=== PATIENT | female | born 1990 | race Asian ===

== ENCOUNTER → 2017-03-16 | Outpatient (CLI) | payer OTHER ==
[2017-03-16 17:20] LABS: BASO % 0.1 %; BASO ABS # 0.01 K/uL (0-0.2); COMPLETE YES; EOS % 0.4 %; HEMATOCRIT 35.9 % (37-47); IG% 0.1 %; LYMPH % 30.4 %; LYMPH ABS # 2.91 K/uL (1.2-3.4); MEAN CORPUSCULAR HEMOGLOBIN 27.8 pg (25-34); MEAN CORPUSCULAR HGB CONC 34.8 g/dl (32-36); PLATELET COUNT 260 K/uL (130-400); RED BLOOD COUNT 4.49 M/uL (4.2-5.4); WHITE BLOOD COUNT 9.58 K/uL (4.8-10.8)
== END | disposition home or self-care (01) ==
LOC: C.LAB1850 16:43
PROVIDERS: ATTEND Obstetrics & Gynecology
DX: Z34.01 Encounter for supervision of normal first pregnancy, first trimester (principal)

== ENCOUNTER → 2017-03-16 | Outpatient (CLI) | payer OTHER | END | disposition home or self-care (01) | LOC: C.PAPS 10:31 | PROVIDERS: ATTEND Obstetrics & Gynecology | DX: Z12.4 Encounter for screening for malignant neoplasm of cervix (principal); Z33.1 Pregnant state, incidental ==

== ENCOUNTER → 2017-03-16 | Outpatient (CLI) | payer OTHER ==
[2017-03-16 18:43] LABS: URINE APPEARANCE CLEAR (CLEAR); URINE BILIRUBIN NEG (NEG); URINE COLOR YELLOW; URINE NITRITE NEG (NEG); URINE PH 6.5 (4.5-7.5); URINE SPECIFIC GRAVITY 1.021 (1.000-1.030); UROBILINOGEN NEG (NEG)
[2017-03-16 18:49] LABS: MANUAL MICROSCOPIC REQUIRED? NO; REVIEW REQ? NO
[2017-03-20 06:59] LABS: CHLAMYDIA TRACH RNA*** NOT DETECTED (NOT DETECTED); GC (NEIS GONORRHOEAE)RNA** NOT DETECTED (NOT DETECTED)
== END | disposition home or self-care (01) ==
LOC: C.LABSPEC 17:38
PROVIDERS: ATTEND Obstetrics & Gynecology
DX: Z34.01 Encounter for supervision of normal first pregnancy, first trimester (principal)

== ENCOUNTER → 2017-06-12 | Outpatient (CLI) | payer OTHER ==
[2017-06-12 20:23] LABS: GTGD 50 Grams
== END | disposition home or self-care (01) ==
LOC: C.LAB1850 15:46
PROVIDERS: ATTEND Obstetrics & Gynecology
DX: Z34.02 Encounter for supervision of normal first pregnancy, second trimester (principal)

== ENCOUNTER → 2017-08-02 | Outpatient (CLI) | payer OTHER ==
[2017-08-02 12:03] LABS: GTGD 50 Grams
[2017-08-02 12:07] LABS: HEMATOCRIT 35.1 % (37-47)
== END | disposition home or self-care (01) ==
LOC: C.LAB1850 10:08
PROVIDERS: ATTEND Obstetrics & Gynecology
DX: Z34.03 Encounter for supervision of normal first pregnancy, third trimester (principal)

== ENCOUNTER → 2017-08-17 | Outpatient (CLI) | payer OTHER ==
[2017-08-17 11:28] LABS: URINE APPEARANCE CLEAR (CLEAR); URINE COLOR DK YELLOW; URINE EPITHELIAL CELL AUTO >30 /lpf (0-5); URINE NITRITE NEG (NEG); URINE SPECIFIC GRAVITY 1.027 (1.000-1.030); UROBILINOGEN NEG (NEG)
[2017-08-17 11:29] LABS: MANUAL MICROSCOPIC REQUIRED? NO; REVIEW REQ? YES
[2017-08-17 11:31] LABS: URINE BILIRUBIN NEG (NEG)
== END | disposition home or self-care (01) ==
LOC: C.LABSPEC 10:47
PROVIDERS: ATTEND Obstetrics & Gynecology
DX: Z34.03 Encounter for supervision of normal first pregnancy, third trimester (principal)

== ENCOUNTER → 2017-10-05 | Outpatient (CLI) | payer OTHER | END | disposition home or self-care (01) | LOC: C.LABSPEC 17:41 | PROVIDERS: ATTEND Obstetrics & Gynecology | DX: Z34.03 Encounter for supervision of normal first pregnancy, third trimester (principal) ==

== ENCOUNTER 2017-10-29 19:40 | Inpatient (IN) | payer OTHER ==
[~2017-10-29] VITALS: Ht 160 cm; Wt 81.4 kg
[2017-10-29 21:03] LABS: HEMATOCRIT 37.8 % (37-47); HEMOGLOBIN 12.9 g/dL (12.0-16.0); MEAN CELL VOLUME 79.4 fL (80-100); MEAN CORPUSCULAR HEMOGLOBIN 27.1 pg (25-34); MEAN CORPUSCULAR HGB CONC 34.1 g/dl (32-36); MEAN PLATELET VOLUME 10.2 fL (7.4-10.4); PLATELET COUNT 190 K/uL (130-400); RED CELL DISTRIBUTION WIDTH CV 14.5 % (11.5-14.5); RED CELL DISTRIBUTION WIDTH SD 41.7 fL (36.4-46.3); WHITE BLOOD COUNT 12.74 K/uL (4.8-10.8)
[2017-10-29 22:17] VITALS: Ht 160 cm; Wt 81.4 kg
[2017-10-29] MEDS ORDERED: PRENTAB26 PO (22:24)
[2017-10-30] MEDS ORDERED: LACTATED RINGER'S 1000ML 1,000 ML IV PRN (00:37)
[2017-10-30] MEDS ORDERED: BUTORPHANOL TARTRATE 1 MG/ML VIAL IV PRN (00:45)
[2017-10-30] MEDS: LACTATED RINGER'S 1000ML 1,000 ML IV SCH ×3 (00:48→06:32)
[2017-10-30] MEDS ORDERED: BUPIVACAINE 0.25% 30 ML VIAL ONE (01:05)
[2017-10-30] MEDS ORDERED: EpHEDrine SULFATE INJ 50 MG/ML AMP ONE (01:05)
[2017-10-30] MEDS ORDERED: FENTANYL 2MCG/ML ROPIV 1.25MG/ML 100ML BAG EPI ONE (01:06)
[2017-10-30] MEDS ORDERED: FENTANYL CITRATE INJ 50 MCG/1 ML 2 ML VIAL ONE (01:06)
[2017-10-30] MEDS ORDERED: LACTATED RINGER'S 1000ML 500 ML IV PRN (02:16)
[2017-10-30] MEDS ORDERED: NALOXONE HCL INJ 1 MG in SODIUM CHLORIDE 0.9% 1000ML 1,000 ML IV PRN (02:16)
[2017-10-30] MEDS ORDERED: ONDANSETRON INJ 2 MG/ML 2 ML VIAL IV PRN (02:30)
[2017-10-30] MEDS ORDERED: NALBUPHINE HCL INJ 10 MG/ML AMP IV PRN (02:30)
[2017-10-30] MEDS ORDERED: DiphenhydrAMINE HCL 50 MG/ML VIAL IV PRN (02:30)
[2017-10-30] MEDS ORDERED: NALOXONE HCL INJ 0.4 MG/1 ML VIAL/CARP IV PRN (02:30)
[2017-10-30] MEDS ORDERED: EpHEDrine SULFATE INJ 50 MG/ML AMP IV PRN (02:30)
[2017-10-30] MEDS ORDERED: FENTANYL 2MCG/ML ROPIV 1.25MG/ML 100ML BAG EPI PRN (02:30)
[2017-10-30] MEDS ORDERED: OXYTOCIN 30 UNITS/500ML NSS IV ONE ×2 (06:27→07:03)
[2017-10-30] MEDS ORDERED: NURSING VERBAL MED ORDER ONE ×2 (07:00→21:00)
[2017-10-30] MEDS ORDERED: GENTAMICIN CONSULT ACTIVE PRN (08:30)
[2017-10-30] MEDS: AMPICILLIN IV 2,000 MG in SODIUM CHLOR 0.9% AD-VAN 100ML 100 ML IV SCH ×3 (08:53→21:00)
[2017-10-30] MEDS ORDERED: AMPICILLIN INJ 2,000 MG in SODIUM CHLORIDE 0.9% 50ML 50 ML IV SCH (09:00)
[2017-10-30] MEDS: DEXTROSE 5% IV SCH (09:52)
[2017-10-30] MEDS: GENTAMICIN IV SCH (09:52)
[2017-10-30 09:55] LABS: CREATININE 0.99 mg/dl (0.60-1.20)
[2017-10-30] MEDS ORDERED: BENZOCAINE 20% AER SPR 82.5 GM CAN EXT PRN (11:00)
[2017-10-30] MEDS ORDERED: ACETAMINOPHEN/CODEINE 300/30MG TAB PO PRN (11:00)
[2017-10-30] MEDS ORDERED: LANOLIN OINT EXT PRN (11:00)
[2017-10-30] MEDS ORDERED: HYDROCORTISONE ACETATE 25 MG SUPP PR PRN (11:00)
[2017-10-30] MEDS ORDERED: DIPHTHERIA/TETANUS/PERTUSSIS 0.5 ML SYR/VIAL IM. ONE (11:00)
[2017-10-30] MEDS ORDERED: ACETAMINOPHEN 325 MG TAB PO PRN (11:00)
[2017-10-30] MEDS ORDERED: SUPERCREAM 0.870 % 15GM JAR EXT PRN (11:00)
[2017-10-30] MEDS ORDERED: OXYTOCIN 30 UNITS/500ML NSS IV PRN (11:00)
--- NOTE | 2017-10-30 11:18 | Discharge Instructions ---
Discharge Instructions Date of Service Oct 30, 2017. Admission Reason for Admission: Encounter For Supervision Of Normal Intrauterine Discharge Discharge Diagnosis / Problem: Vaginal Delivery Discharge Goals Goal(s): Routine recovery after delivery Medications Continue Dispensed Medications: supercream, dermaplast, tucks, lansinoh Activity Recommendations Activity Limitations: per Instructions/Follow-up section . Instructions / Follow-Up Instructions / Follow-Up ACTIVITY RECOMMENDATIONS: * Gradual return to full activity over the next 2-3 weeks. * No lifting - nothing heavier than baby over the next 2-3 weeks. * Do not engage in vigorous exercise, sexual activity or sports until cleared by your physician. * Do not drive or operate any motorized equipment until cleared by your physician. * You may shower/bathe daily. MEDICATIONS: For discomfort or pain, you may use Acetaminophen (Tylenol), Ibuprofen (Advil), or Naproxen (Aleve) following the package directions. For constipation you may use Colace following the package directions. BREAST CARE: If you are not breast feeding: * Wear a supportive bra 24 hours a day for one to two weeks. * Avoid stimulating your breasts and nipples as much as possible during the first few weeks after delivery. * When taking a shower, have the warm water hit your back, not breasts. * When your breasts feel full, apply ice packs. Usually three to four times a day helps ease the discomfort. * Take a mild pain medication (Tylenol / Motrin) when you are uncomfortable. If breast feeding: * Use breast milk to lubricate nipples. Lansinoh cream may be used for sore nipples. You do not need to remove cream prior to breast feeding. If using a different brand of cream, check the label for directions regarding removal of cream prior to nursing. * Wear a supportive bra. * If having problems with breasts or breast feeding, call a [facility] consultant or your health care provider. EPISIOTOMY CARE: After delivery, if you have an episiotomy (stitches), the following steps will ease discomfort and aid healing. * For the first 24 hours after delivery, place ice packs next to your episiotomy to help reduce swelling. * After the first 24 hour-period, sitz baths, either portable or in the tub, are suggested. A shower with a shower arm sprayed over the episiotomy may be comforting. * Mira care should be done after each voiding and bowel movement. Squirt warm water from a plastic bottle over the perineum (region of the body between the anus and urinary opening) and pat dry. * Use Dermoplast to ease discomfort. Shake container. [place] directly over the episiotomy. Place a Tucks on a clean sanitary pad next to your episiotomy. SPECIAL CARE INSTRUCTIONS: When you are discharged from the hospital, it is important for you to follow the instructions listed below: * During the first week at home, you should be able to care for yourself and your baby. In addition, the usual light household activities are encouraged. * Limit your activities to the way you feel. Do not try to clean the house or move furniture. Be sensible. * If you actively engage in sports and have done so up until the time of your delivery, you may resume these activities as soon as you feel able. This may take up to one month or even longer. Use good judgment. * Continue to take your vitamins for at least six weeks after the of your baby. * Your diet need not be limited unless you were on a special diet before your delivery. Breast-feeding mothers need around 2500 calories per day and at least 64-80 ounces of fluid per day (8 to 10 glasses). * You should eat foods from the four major food groups. Crash diets or fad diets are to be avoided. Eating lean meats, fresh fruits and vegetables, low-fat dairy products, high fiber foods and a regular exercise program, will help you get back to your pre- weight without putting your health at risk. * Constipation is sometimes a problem after delivery. Take a mild laxative as needed. If breast feeding, Milk of Magnesia is acceptable to use. You may use a suppository or Fleets enema if no episiotomy. * A daily shower or tub bath is suggested. Be sure to thoroughly and gently dry the perineum. * A bloody vaginal discharge will usually continue until around four weeks post . A small amount of bleeding may continue for as long as six weeks. Vaginal discharge changes from the bright red bleeding after delivery to pink then brownish and finally yellowish-pink before becoming white and disappearing. * Bleeding may increase with activity. Your first period may come in 4-8 weeks. If you are breast feeding, your period may be delayed even longer. * Sh[place]aloo (sex) can begin whenever both you and your partner feel comfortable and do not have any form of genital infection. It is recommended that you wait at least six weeks for internal and external healing to occur. If you have questions, please talk to your health care practitioner. A condom should be used to prevent infection and . * Foreplay, gentle intercourse and lubrication is very important the first several times to prevent pain. A water-based lubricant such as K-Y jelly or Astroglide may be used. * If you have RH negative blood and your baby is RH positive, you will receive RHOGAM by injection prior to discharge. The nurse will give you a card to keep with you that has the date and place that you received RHOGAM after delivery. * During your care, you had a Rubella screen done to check for the presence of rubella antibodies in your blood. If your test was negative, you will receive a Rubella vaccine prior to discharge. This vaccine may cause a fever, soreness at the injection site and flu-like symptoms. If these symptoms persist, notify your health care practitioner. is not advised for one month after a Rubella vaccine. * Verbalizes understanding of car seat law as reviewed with patient nursing. * Car Seat hand-out given and reviewed with patient by nursing. * Shaken baby information reviewed with patient by nursing. Call you doctor if: * Heavy bleeding (saturating several pads an hour) or passing clots the size of your fist. * A fever >101 degrees F (38.3 degrees C) on two occasions four hours apart and /or chills. * Unusual pain in the pelvic or vaginal areas. * "Baby Blues" lasting longer than two weeks. If you have any questions or concerns, call your health care practitioner at . FOLLOW UP VISIT: * Please call the office at to schedule a 6 week examination. It is important you keep this appointment. It is important for you to make arrangements for either yearly or twice yearly check-ups thereafter. Current Hospital Diet Patient's current hospital diet: Regular OB Diet Discharge Diet Recommended Diet: Regular Diet Pending Studies Studies pending at discharge: no Medical Emergencies . Who to Call and When: Medical Emergencies: If at any time you feel your situation is an emergency, please call 911 immediately. . Non-Emergent Contact Non-Emergency issues call your: Primary Care Provider . . "Provider Documentation" section prepared by Yared Chase. . VTE Core Measure Inpt VTE Proph given/why not?: Treatment not indicated
--- NOTE | 2017-10-30 11:21 | Anesthesia Procedure Note ---
Anesthesia Epidural Removal Nt Date & Time Oct 30, 2017 at 11:21 Vital Signs Pain Intensity: 1.0 Notes Mental Status: alert / awake / arousable, participated in evaluation Nausea / Vomiting: adequately controlled Pain: adequately controlled Airway Patency, RR, SpO2: stable & adequate BP & HR: stable & adequate Hydration State: stable & adequate Neuraxial Anesthesia: was administered Anesthetic Complications: no major complications apparent, pt satisfied with anesthetic care Epidural: removed without complications, with tip intact
--- NOTE | 2017-10-30 11:21 | DELIVERY SUMMARY ---
DATE OF OPERATION: 10/30/2017 VAGINAL DELIVERY SUMMARY PREDELIVERY DIAGNOSES: 1. A 27-year-old G1, P0 at 40 weeks and 5 days. 2. Spontaneous labor. 3. Chorioamnionitis. POSTDELIVERY DIAGNOSES: Same. PROCEDURE: Spontaneous vaginal delivery and repair of second degree perineal laceration. ESTIMATED BLOOD LOSS: 300 mL. FINDINGS: Viable male . Apgars 3 at 1 minute and 9 at 5 minutes. Weight pending. Please see nursery records. DESCRIPTION OF DELIVERY: The patient progressed to complete with epidural anesthesia. She then began to push. During her pushing process, she was noted to have a temperature of 100.7 degrees Fahrenheit as well as maternal tachycardia in the 130s-140s. heart rate during pushing was a baseline of 150s with category 2 tracing throughout with occasional late Declarations; however, these were not recurrent. Because of the diagnosis during pushing of chorioamnionitis, antibiotics were initiated. She received 5 mg/kg of gentamicin IV as well as 2 grams of ampicillin IV. These will be continued for one dose postdelivery. After pushing, the patient spontaneously vaginally delivered a viable male from the cephalic presentation. The head delivered in the left occiput anterior position. No nuchal cord was noted. The anterior followed by the posterior shoulder delivered followed by the body. The baby was placed on mother's abdomen. The cord was doubly clamped and cut and the baby was handed off to the waiting pediatric team. A segment of cord was retained for cord gases. Cord blood was obtained. The placenta then delivered spontaneously intact with a 3-vessel cord. Pitocin was administered. The uterus and vagina were swept of all clots and debris. The uterus became firm. The vagina, cervix, and perineum were inspected and a second degree perineal laceration was noted and repaired in standard fashion with 3-0 Vicryl in a running locked stitch. Excellent hemostasis was observed. Rectal exam revealed no stitches or lacerations entering into the rectum. The anal sphincter was visualized and noted to be intact. Excellent hemostasis was observed. At the conclusion of the delivery, all sponge, instrument and needle counts were correct x2. Mother and baby tolerated the delivery well and are recovering in stable and good condition in the room. I attest to the content of the Intraoperative Record and any orders documented therein. Any exception s are noted below.
[2017-10-30] MEDS: IBUPROFEN 600 MG TAB PO PRN ×3 (13:16→22:43)
[2017-10-30 13:40] VITALS: BP 112/74; PULSE 114; TEMP 36.9
[2017-10-30] MEDS: ACETAMINOPHEN/CODEINE 300/30MG TAB PO PRN ×3 (13:58→22:43)
[2017-10-30 15:00] VITALS: BP 119/80; PULSE 96; TEMP 36.5
[2017-10-30 19:30] VITALS: BP 120/78; PULSE 92; TEMP 36.4
[2017-10-30] MEDS: DOCUSATE SODIUM 100 MG CAP PO SCH (20:00)
[2017-10-31 00:19] VITALS: BP 112/76; TEMP 36.6
[2017-10-31] MEDS: AMPICILLIN IV 2,000 MG in SODIUM CHLOR 0.9% AD-VAN 100ML 100 ML IV SCH (03:03)
[2017-10-31 03:32] VITALS: BP 114/71; PULSE 105; TEMP 36.5
[2017-10-31] MEDS ORDERED: SODIUM CHLORIDE 0.65% NA SOLN 45 ML (OCEAN) ONE (03:47)
[2017-10-31] MEDS ORDERED: COUGH DROP (SUGAR FREE) LOZ 24 LOZ/1 BOX LOZ ONE (03:47)
[2017-10-31] MEDS: IBUPROFEN 600 MG TAB PO PRN ×3 (04:31→20:44)
[2017-10-31] MEDS: ACETAMINOPHEN/CODEINE 300/30MG TAB PO PRN ×3 (04:31→14:14)
--- NOTE | 2017-10-31 06:25 | Progress Note ---
Subjective Oct 31, 2017. Subjective conversation w/ patient (Patient seen and examined at bedside) Ambulation: ambulating normally Voiding: no voiding problems Diet Tolerance: Regular Diet Lochia: Moderate Feeding Type: Breast Feeding Pain: 4/10 and improved with analgesia Review of Systems Constitutional: No fever, No chills Respiratory: No cough, No shortness of breath Cardiac: No chest pain Breast: No breast pain Abdomen: No nausea, No vomiting Female : No dysuria Objective Vital Signs Date Time Temp Pulse Resp B/P (MAP) Pulse Ox O2 Delivery O2 Flow Rate FiO2 10/31/17 03:32 36.5 105 18 114/71 (85) Room Air 10/31/17 00:23 Room Air 10/31/17 00:19 36.6 18 112/76 (88) Room Air 10/30/17 19:30 36.4 92 20 120/78 (92) Room Air 10/30/17 15:00 36.5 96 20 119/80 (93) Room Air 10/30/17 15:00 Room Air 10/30/17 13:40 36.9 114 20 112/74 (87) Room Air 10/30/17 13:40 Room Air Physical Exam General Appearance: WELL-APPEARING, WD/WN, NO APPARENT DISTRESS Respiratory/Chest: lungs clear, normal breath sounds Cardiovascular: regular rate, rhythm Abdomen: soft Fundus: Firm, Non-Tender, Relation to Umbilicus (1below) Extremities: no calf tenderness Laboratory Results Last 24 Hours Test 10/30/17 09:02 10/31/17 04:44 Creatinine 0.99 mg/dl Est Creatinine Clear Calc Drug Dose 84.7 ml/min Estimated GFR () 89.3 Estimated GFR (Non- 77.0 Medications Current Inpatient Medications Medications (Trade) Dose Ordered Sig/Angela Route Start Time Stop Time Status Last Admin Dose Admin Lactated Ringer's 1,000 ml @ 125 mls/hr Q8H IV 10/30/17 00:37 11/01/17 00:36 10/30/17 06:32 125 MLS/HR Lactated Ringer's 1,000 ml @ 999 mls/hr Q1H1M PRN IV 10/30/17 00:37 11/29/17 00:36 Gentamicin Sulfate 400 mg/ Dextrose 110 ml @ 100 mls/hr DAILY IV 10/30/17 09:30 10/31/17 09:05 10/30/17 09:52 100 MLS/HR Miscellaneous Information (Consult) 1 ea UD PRN N/A 10/30/17 08:30 10/31/17 23:59 Oxytocin (Pitocin IV) 30 units UD PRN IV 10/30/17 11:00 11/29/17 10:59 Benzocaine (Dermoplast Aero Spr) 1 appln PRN PRN EXT 10/30/17 11:00 11/29/17 10:59 10/30/17 16:03 1 APPLN Cocaine HCl (Supercream 0.870% Cr) BID PRN EXT 10/30/17 11:00 11/13/17 10:59 10/30/17 16:03 1 GM Hydrocortisone Acetate (Anusol Hc Supp) 25 mg BID PRN NE 10/30/17 11:00 11/29/17 10:59 Lanolin (Lanolin Oint) PRN PRN EXT 10/30/17 11:00 11/29/17 10:59 Prenat Multivit/ Agronomy Teacher/Iron/Folic Ac ( Vitamin Tab) 1 tab DAILY PO 10/31/17 08:00 11/30/17 07:59 Ibuprofen (Motrin Tab) 600 mg Q4H PRN PO 10/30/17 11:00 11/29/17 10:59 10/31/17 04:31 600 MG Acetaminophen (Tylenol Tab) 650 mg Q6H PRN PO 10/30/17 11:00 11/29/17 10:59 Acetaminophen/ Codeine Phosphate (Tylenol w/ Codeine #3 Tab) 1 tab Q4H PRN PO 10/30/17 11:00 11/29/17 10:59 10/31/17 04:31 1 TAB Acetaminophen/ Codeine Phosphate (Tylenol w/ Codeine #3 Tab) 2 tab Q4H PRN PO 10/30/17 11:00 11/29/17 10:59 Bisacodyl (Dulcolax Tab) 5 mg 20 PO 10/31/17 20:00 10/31/17 20:01 Bisacodyl (Dulcolax Supp) 10 mg DAILY PRN [place] 11/01/17 07:00 Docusate Sodium (coLACE CAP) 100 mg BID PO 10/30/17 20:00 3/14/18 19:59 10/30/17 20:00 100 MG Prenat Multivit/ [place]/Iron/Folic Ac ( Vitamin Tab) 1 tab DAILY PO 10/31/17 08:00 11/30/17 07:59 Ampicillin Sodium 2000 mg/Sodium Chloride 100 ml @ 216 mls/hr Q6H IV 10/30/17 22:00 10/31/17 07:00 10/31/17 03:03 216 MLS/HR Assessment and Plan Post- Day#: 1 Continue Routine Care: 27 year old s/p NVD complicated by chorioamnionitis day 1 - pt doing well clinically - received ampicillin and gentamicin during labor & - B+, Rubella immune, GBS -ve - vitals reviewed, patient has been slightly tachycardic at 105. Will continue to monitor - continue to encourage ambulation, and analgesia prn Resident Physician Supervision Note: I interviewed and examined the patient. Discussed with Dr. Vail and agree with findings and plan as documented in the note. Any exceptions or clarifications are listed here: [None] Documented By: Scotty Goodwin Resident Tracking Resident Involvement: Resident Care Provided Care Provided: OB Delivery
[2017-10-31 07:22] LABS: HEMATOCRIT 25.1 % (37-47); HEMOGLOBIN 8.5 g/dL (12.0-16.0)
[2017-10-31 07:53] LABS: CREATININE 0.65 mg/dl (0.60-1.20)
[2017-10-31 08:00] VITALS: BP 101/66; PULSE 92; TEMP 36.3
[2017-10-31] MEDS ORDERED: PRENATAL VITAMIN TAB PO SCH ×2 (08:00)
[2017-10-31] MEDS: DOCUSATE SODIUM 100 MG CAP PO SCH ×2 (08:38→20:21)
[2017-10-31] MEDS: DEXTROSE 5% IV SCH (09:55)
[2017-10-31] MEDS: GENTAMICIN IV SCH (09:55)
[2017-10-31 11:05] VITALS: BP 102/98; PULSE 99; TEMP 36.6
[2017-10-31 16:40] VITALS: BP 106/72; PULSE 109; TEMP 36.7
[2017-10-31] MEDS ORDERED: BISACODYL 5 MG TABEC PO SCH (20:00)
[2017-10-31 23:25] VITALS: BP 113/77; PULSE 105; TEMP 36.7; O2SAT 98
[2017-11-01] MEDS: IBUPROFEN 600 MG TAB PO PRN ×2 (05:14→11:47)
--- NOTE | 2017-11-01 06:08 | Progress Note ---
Subjective Nov 01, 2017. Subjective conversation w/ patient (Patient seen and examined at bedside) Ambulation: ambulating normally Voiding: no voiding problems Passing Gas: Yes Diet Tolerance: Regular Diet Lochia: Moderate Feeding Type: Breast Feeding Pain: 3-4/10, controlled with analgesia Review of Systems Constitutional: No fever, No chills Respiratory: No shortness of breath Cardiac: No chest pain Breast: No breast pain Abdomen: No nausea, No vomiting Female : No dysuria Objective Vital Signs Date Time Temp Pulse Resp B/P (MAP) Pulse Ox O2 Delivery O2 Flow Rate FiO2 10/31/17 23:25 36.7 105 18 113/77 (89) 98 Room Air 10/31/17 23:25 Room Air 10/31/17 16:40 Room Air 10/31/17 16:40 36.7 109 18 106/72 (83) Room Air 10/31/17 11:05 36.6 99 18 102/98 (99) Room Air 10/31/17 08:00 36.3 92 16 101/66 (78) Room Air 10/31/17 08:00 Room Air Physical Exam General Appearance: WELL-APPEARING, WD/WN, NO APPARENT DISTRESS Respiratory/Chest: lungs clear, normal breath sounds Cardiovascular: regular rate, rhythm Abdomen: soft Fundus: Firm, Non-Tender, Relation to Umbilicus (1 below) Extremities: no calf tenderness Laboratory Results Last 24 Hours Test 10/31/17 07:00 11/01/17 04:44 Hemoglobin 8.5 g/dL Hematocrit 25.1 % Creatinine 0.65 mg/dl Est Creatinine Clear Calc Drug Dose 129.0 ml/min Estimated GFR () 139.1 Estimated GFR (Non- 120.0 Medications Current Inpatient Medications Medications (Trade) Dose Ordered Sig/Angela Route Start Time Stop Time Status Last Admin Dose Admin Lactated Ringer's 1,000 ml @ 999 mls/hr Q1H1M PRN IV 10/30/17 00:37 11/29/17 00:36 Oxytocin (Pitocin IV) 30 units UD PRN IV 10/30/17 11:00 11/29/17 10:59 Benzocaine (Dermoplast Aero Spr) 1 appln PRN PRN EXT 10/30/17 11:00 11/29/17 10:59 10/30/17 16:03 1 APPLN Cocaine HCl (Supercream 0.870% Cr) BID PRN EXT 10/30/17 11:00 11/13/17 10:59 10/30/17 16:03 1 GM Hydrocortisone Acetate (Anusol Hc Supp) 25 mg BID PRN [place] 10/30/17 11:00 11/29/17 10:59 Lanolin (Lanolin Oint) PRN PRN EXT 10/30/17 11:00 11/29/17 10:59 Ibuprofen (Motrin Tab) 600 mg Q4H PRN PO 10/30/17 11:00 11/29/17 10:59 11/01/17 05:14 600 MG Acetaminophen (Tylenol Tab) 650 mg Q6H PRN PO 10/30/17 11:00 11/29/17 10:59 Acetaminophen/ Codeine Phosphate (Tylenol w/ Codeine #3 Tab) 1 tab Q4H PRN PO 10/30/17 11:00 11/29/17 10:59 10/31/17 14:14 1 TAB Acetaminophen/ Codeine Phosphate (Tylenol w/ Codeine #3 Tab) 2 tab Q4H PRN PO 10/30/17 11:00 11/29/17 10:59 Bisacodyl (Dulcolax Supp) 10 mg DAILY PRN [place] 11/01/17 07:00 Docusate Sodium (coLACE CAP) 100 mg BID PO 10/30/17 20:00 11/29/17 19:59 10/31/17 20:21 100 MG Prenat Multivit/ Arthur/Iron/Folic Ac ( Vitamin Tab) 1 tab DAILY PO 10/31/17 08:00 11/30/17 07:59 Assessment and Plan Post- Day#: 2 Continue Routine Care: 27 year old s/p NVD complicated by chorioamnionitis day 2 - pt doing well clinically - received ampicillin and gentamicin during labor & - d/daniel now - B+, Rubella immune, GBS -ve - vitals reviewed, patient continues to be slightly tachycardic at 105. Will continue to monitor - continue to encourage ambulation, and analgesia prn - provided pt does well today & baby d/daniel by peds, could discharge home later. Will review d/c instructions Resident Physician Supervision Note: I interviewed and examined the patient. Discussed with Dr. Chase and agree with findings and plan as documented in the note. Any exceptions or clarifications are listed here: [None] Documented By: Pascale Paulino Resident Tracking Resident Involvement: Resident Care Provided Care Provided: OB Delivery
[2017-11-01] MEDS ORDERED: BISACODYL 10 MG SUPP PR PRN (07:00)
[2017-11-01] MEDS: DOCUSATE SODIUM 100 MG CAP PO SCH (08:09)
[2017-11-01 08:15] VITALS: BP 118/80; PULSE 95; TEMP 36.6
[2017-11-01 08:30] LABS: CREATININE 0.51 mg/dl (0.60-1.20)
[2017-11-01 13:00] VITALS: BP_DIAS 80; PULSE 95; TEMP 36.6
== END 2017-11-01 15:20 | disposition home or self-care (01) | DRG 774 ==
LOC: C.OPB 19:40 → C.LD 19:41 → C.OPB 20:25 → C.OBG 10-30 14:32
PROVIDERS: ADMIT Obstetrics & Gynecology; ATTEND Obstetrics & Gynecology
PROC: 10E0XZZ Delivery of Products of Conception, External Approach (ICD-10-PCS; principal; 2017-10-29)
PROC: 0WQNXZZ Repair Female Perineum, External Approach (ICD-10-PCS; principal; 2017-10-29)
DX: O41.1230 Chorioamnionitis, third trimester, not applicable or unspecified (principal); O75.2 Pyrexia during labor, not elsewhere classified; Z3A.40 40 weeks gestation of pregnancy; O70.1 Second degree perineal laceration during delivery

== ENCOUNTER → 2017-11-30 | Outpatient (CLI) | payer OTHER ==
[~2017-11-30] MED LIST: PRENTAB26 PO
== END | disposition home or self-care (01) ==
LOC: C.LABSPEC 15:45
PROVIDERS: ATTEND Obstetrics & Gynecology
DX: R10.2 Pelvic and perineal pain (principal)

== ENCOUNTER → 2017-12-15 | Outpatient (CLI) | payer OTHER ==
--- NOTE | 2017-12-15 16:27 | DIAGNOSTIC IMAGING REPORT ---
VENOUS DOPPLER LWR EXT BILA CLINICAL HISTORY: 27 years-old Female presenting with 7 WKS POST , BILAT LE SWELLING. TECHNIQUE: Real-time grayscale and color and spectral Doppler ultrasound imaging of the veins of the bilateral lower extremities was performed. Compression and augmentation were also utilized. COMPARISON: None. FINDINGS: Right: Common femoral vein: Patent. Greater saphenous vein: Patent. Deep femoral vein: Patent. Femoral vein: Patent. Popliteal vein: Patent. Calf veins: Patent. Left: Common femoral vein: Patent. Greater saphenous vein: Patent. Deep femoral vein: Patent. Femoral vein: Patent. Popliteal vein: Patent. Calf veins: Patent. Other: None. IMPRESSION: No evidence of deep venous thrombosis. Electronically signed by: Raphael Dao M.D. 12/15/2017 4:26 PM Dictated Date/Time: 12/15/2017 4:25 PM
== END | disposition home or self-care (01) ==
LOC: C.ULTR 15:33
PROVIDERS: ATTEND Emergency Medicine
DX: R60.9 Edema, unspecified (principal)